=== PATIENT | female | born 1945 | race Caucasian/White ===

== ENCOUNTER → 2019-02-19 | Day surgery (SDC) | payer MEDICARE ==
[2019-02-17 13:48] LABS: BASOPHILS % 0.6 % (0.0-1.0); EOSINOPHILS # (AUTO) 0.1 (0.0-0.4); EOSINOPHILS % 1.6 % (0.0-6.0); HEMATOCRIT 41.3 % (34.2-44.1); HEMOGLOBIN 13.9 g/dL (12.0-16.0); LYMPHOCYTES # (AUTO) 2.4 (1.0-3.2); LYMPHOCYTES % 34.1 % (18.0-39.1); MEAN CORPUSCULAR HEMOGLOBIN 31.1 pg (28-32); MEAN CORPUSCULAR HGB CONC 33.7 g/dL (31-35); MEAN CORPUSCULAR VOLUME 92.4 fL (81-99); MONOCYTES # (AUTO) 0.5 (0.2-0.8); MONOCYTES % 6.4 % (4.4-11.3); PLATELET COUNT 262 x10e3/uL (140-360); RED BLOOD COUNT 4.47 x10e6/uL (3.6-5.1); RED CELL DISTRIBUTION WIDTH 13.2 % (11.7-14.4)
[2019-02-17 14:12] LABS: ANION GAP 13.4 mmol/L (8-16); CALCIUM 9.8 mg/dL (8.4-10.2); CREATININE, SERUM 1.02 mg/dL (0.57-1.11); POTASSIUM 3.4 mmol/L (3.5-5.1)
--- NOTE | 2019-02-17 14:23 | Diagnostic Imaging Report ---
EXAMINATION: CHEST 2 VIEWS INDICATION: Preop for right foot surgery ^PRE ADMIT ^[id number] ^1333 COMPARISON: None FINDINGS: TUBES and LINES: None. LUNGS: Lungs are well inflated. Lungs are clear. There is no evidence of pneumonia or pulmonary edema. PLEURA: No pleural effusion or pneumothorax. HEART AND MEDIASTINUM: The cardiomediastinal silhouette is unremarkable. BONES AND SOFT TISSUES: No acute osseous lesion. Soft tissues are unremarkable. UPPER ABDOMEN: No free air under the diaphragm. IMPRESSION: No acute thoracic abnormality. Signed by: Dr. Freddy Herrera M.D. on 02/17/2019 2:19 PM
[~2019-02-19] MED LIST: BACITRACIN 50,000 UNIT VIAL ONE; BUPIVACAINE 0.5%/EPI 30 ML SDV INJ ONE; BUPIVACAINE HCL 0.5% INJ 30 ML VIAL INJ ONE; CEFAZOLIN SOD 2 GM/D5W 50ML 50 ML IV ONE; DEXAMETHASONE SOD PHOS INJ 4 MG/ML VIAL ONE; FENTANYL CITRATE/PF 100MCG/2 ML INJ ONE; HYDROCHLOROTHIA25 MG; KETAMINE HCL INJ 50 MG/ML 10 ML VIAL ONE; LIDOCAINE HCL 2% LOCAL INJ 5 ML SDV VIAL INJ ONE; LISINOPRIL2.5 MG PO; METOCLOPRAMIDE HCL 10 MG/2ML VIAL ONE; ONDANSETRON HCL INJ 2MG/ML 2ML 2 MG/ML VIAL ONE; PROMETHAZINE HCL (IM) 25 MG/ML VIAL ONE; PROPOFOL IV EMULSION 10 MG/ML 20 ML VIAL ONE; SEVOFLURANE INHAL SOLN 250 ML PEN BTL ONE
--- OUTSIDE RECORDS SUMMARY | 2019-02-19 07:54 | XMS REPORT ---
Author Author [facility] Address Unknown Phone Unavailable Care Team Providers Care [employer] Name Role Phone SHELLY MCCLAIN Unavailable Unavailable Payers Payer Name Policy Type Policy Number Effective Date Expiration Date Problems This patient has no known problems. Allergies, Adverse Reactions, Alerts Allergy Name Allergy Type Status Severity Reaction(s) Onset Date Inactive Date Treating Clinician Comments codeine DA Active U 2018-12-15 00:00:00 aspirin DA Active U 2018-12-15 00:00:00 codeine DA Active U 2010-06-24 00:00:00 aspirin DA Active U 2010-06-24 00:00:00 ASPIRIN DA Active U 2007-04-16 00:00:00 CODEINE DA Active U 2007-04-16 00:00:00 No Known Contrast Allergies DA Active U 2007-04-16 00:00:00 No Known Food Allergies DA Active U 2007-04-16 00:00:00 No Known Other Allergies DA Active U 2007-04-16 00:00:00 Medications This patient has no known medications. Results Test Description Test Time Test Comments Text Results Atomic Results Result Comments CHEST 2 VIEWS 2019-02-17 14:19:[address] [address] Patient Name: ERIK YU MR #: [id number] : 1945 Age/Sex: 73/F Req #: [id number] Adm Physician: Ordered by: SHELLY MCCLAIN MD Report #: [id number] Location: OR Room/Bed: Procedure: [id number] DX/CHEST 2 VIEWS Exam Date: 02/17/19 Exam Time: 1330 REPORT STATUS: Signed EXAMINATION: CHEST 2 VIEWS INDICATION: Preop for right foot surgery PRE ADMIT [id number] COMPARISON: None FINDINGS: TUBES and LINES: None. LUNGS: Lungs are well inflated. Lungs are clear. There is no evidence of pneumonia or pulmonary edema. PLEURA: No pleural effusion or pneumothorax. HEART AND MEDIASTINUM: The cardiomediastinal silhouette is unremarkable. BONES AND SOFT TISSUES: No acute osseous lesion. Soft tissues are unremarkable. UPPER ABDOMEN: No free air under the diaphragm. IMPRESSION: No acute thoracic abnormality. Signed by: Dr. Freddy Herrera M.D. on 02/17/2019 2:19 PM Dictated By: FREDDY HERRERA MD, MD [id number] Transcribed By: LUCAS on 02/17/191418 COPY TO: SHELLY MCCLAIN MD
[2019-02-19 13:30] VITALS: BP 137/74
--- NOTE | 2019-02-24 16:25 | Operative Report ---
DATE OF PROCEDURE: 02/19/2019 SURGEON: Des Maurer MD PREOPERATIVE DIAGNOSIS: Right displaced 4th toe proximal phalanx fracture. POSTOPERATIVE DIAGNOSIS: Right displaced 4th toe proximal phalanx fracture. OPERATIONS AND PROCEDURE PERFORMED: The patient underwent an attempt to closed reduction and percutaneous pinning versus open reduction and percutaneous pinning of the 4th toe proximal phalanx fracture. LINEN SUPERVISOR: JOHNNIE Spence. ANESTHESIA: General endotracheal intubation anesthesia. IV FLUIDS: Per the anesthesia record. BRIEF DESCRIPTION OF THE PATIENT'S OPERATIVE PROCEDURE: Ms. Han was taken to the operating room, placed in supine position on the operating table. Following induction of general anesthesia as well as endotracheal intubation, the patient's right lower extremity was examined under anesthesia. She was found to have a normal-appearing foot and ankle. Her 4th toe demonstrated an extension and abduction deformity. Fluoroscopic evaluation of the foot demonstrated displaced 4th toe proximal phalanx fracture. The patient's lower extremities were prepped and draped in standard surgical fashion. The case was begun by attempting a closed reduction and percutaneous pinning of the 4th toe injury. The toe was manipulated and acceptable alignment of the toe was achieved. A 0.045 K-wire was inserted from the tip of the toe and attempted to capture the fracture in its reduced position. Fluoroscopic evaluation of the injury however indicated unacceptable alignment of the injury. An incision was then created over the 4th toe proximal phalanx. This incision was carried through skin only. Blunt dissection was used to deepen the incision. The extensor tendon was divided in line with the skin incision. The 4th toe fracture was identified. The fracture callus and hematoma were cleared from the site. The toe was again reduced and the pin was advanced transfixing the fracture in acceptable alignment. The wound was copiously irrigated. The extensor tendon was repaired. The remaining soft tissue was closed in a multilayer fashion. Sterile dressings were applied. The patient was then awakened and taken to the postanesthesia care unit in stable condition. Lynsey Albarran acted as a hr administrative assistant for this case and was necessary for both prepping and draping the patient as well as the retraction of soft tissues that allowed this case to be successful. Des Maurer MD EBR/GUICHO /[id number]
== END | disposition home or self-care (01) ==
LOC: OR 07:51
PROVIDERS: ATTEND Specialist
DX: S92.511A Displaced fracture of proximal phalanx of right lesser toe(s), initial encounter for closed fracture (principal); I34.1 Nonrheumatic mitral (valve) prolapse; K21.9 Gastro-esophageal reflux disease without esophagitis; I12.9 Hypertensive chronic kidney disease with stage 1 through stage 4 chronic kidney disease, or unspecified chronic kidney disease; N18.4 Chronic kidney disease, stage 4 (severe); W22.8XXA Striking against or struck by other objects, initial encounter; Z88.6 Allergy status to analgesic agent; Z88.8 Allergy status to other drugs, medicaments and biological substances; Z01.810 Encounter for preprocedural cardiovascular examination; Z01.812 Encounter for preprocedural laboratory examination; Z01.818 Encounter for other preprocedural examination
CPT/HCPCS: 28525; 36415; 71046; 80048; 85025; 93005; C1713; J0690; J1100; J2001; J2405; J2550; J2704; J2765